=== PATIENT | female | born 1970 | race Two or more races ===

== ENCOUNTER 2023-05-14 07:32 | Emergency (ER) | payer OTHER ==
[~2023-05-14] VITALS: Ht 154.9 cm; Wt 71.7 kg
[~2023-05-14 07:32] MED LIST: ALLEGRA ALLERG180 MG; ELOCON45 G1 TP; MEDROLPACK PO; MEGA TAURINE1000 MG; PREVENT SOFTGEL1 CAP; SYNTHROID50 MCG; TRANXENE T-TA3.75 MG; ZYRTEC10 M3 PO
[2023-05-14] MEDS ORDERED: SYNTHROID112 MCG PO (07:40)
[2023-05-14] MEDS ORDERED: ZOLOFT50 MG PO (07:40)
[2023-05-14] MEDS ORDERED: 0.9 % SODIUM CHLORIDE 1,000 ML IV STA (08:33)
[2023-05-14] MEDS ORDERED: FAMOtidine 10 MG/ML (4ML VIAL) IV STA (08:34)
[2023-05-14] MEDS ORDERED: METOCLOPRAMIDE HCL 5 MG/ML VIAL IV STA (08:35)
[2023-05-14] MEDS ORDERED: ONDANSETRON HCL 2 MG/ML VIAL IV ONE (08:45)
[2023-05-14 08:59] LABS: HEMATOCRIT 37.8 % (36.0-45.00); HEMOGLOBIN 12.9 g/dL (12.0-15.00); MEAN CELL VOLUME 86.6 fL (80.00-100.00); MEAN CORPUSCULAR HEMOGLOBIN 29.7 pg (27.00-32.0); MEAN CORPUSCULAR HGB CONC 34.3 g/dl (32.0-36.0); PLATELET COUNT 339 K/uL (150-450); RED BLOOD COUNT 4.36 M/uL (4.00-6.00); RED CELL DISTRIBUTION WIDTH 13.1 % (11.5-14.5)
[2023-05-14 09:11] LABS: PH,URINE 5.5 (5.0-8.0); URINE APPEARANCE Cloudy; URINE BILIRRUBIN Negative (NEGATIVE); URINE BLOOD Small; URINE COLOR Yellow; URINE GLUCOSE Negative (NEGATIVE); URINE LEUKOCYTE Negative; URINE NITRATE Negative; URINE PROTEIN Trace (NEGATIVE); URINE UROBILINOGEN 0.2 E.U./dl
[2023-05-14 09:14] LABS: URINE BACTERIA 1301.5 uL (0.0-1933); URINE EPITHELIAL CELLS 41.5 uL (0.0-38.8); URINE WBC 6.8 uL (0.0-23.2)
[2023-05-14 09:28] LABS: ALBUMIN 3.9 gm/dL (3.4-5.0); ALKALINE PHOSPHATASE 100 U/L (50-136); ALT/SGPT 18 U/L (12-78); ANION GAP 7 (10.0-20.0); AST/SGOT 18 U/L (15-37); BILIRUBIN TOTAL 0.31 mg/dL (0.3-1.2); BILIRUBIN,CONJUGATED < 0.10 mg/dL (0.0-0.2); BILIRUBIN,UNCONJUGATED 0.21 mg/dL (0.0-0.6); BLOOD UREA NITROGEN 13 mg/dL (7-18); BUN CREA RATIO 18 (7.0-25.0); CALCIUM 9.5 mg/dL (8.5-10.1); CARBON DIOXIDE 28 mEq/L (21-32); CHLORIDE 107 mmol/L (98-107); CREATININE SERUM 0.71 mg/dL (0.55-1.02); GFR 85.78; GLUCOSE FASTING 93 mg/dL (65-100); OSMOLALITY SERUM 275 MOSM/KG (275-295); POTASSIUM 3.62 mEq/L (3.5-5.1); SODIUM 138 mmol/L (136-145); TOTAL PROTEIN 7.8 gm/dL (6.4-8.2)
== END 2023-05-14 13:32 | disposition home or self-care (01) ==
LOC: ER 07:33
PROVIDERS: General Practice
DX: K29.90 Gastroduodenitis, unspecified, without bleeding (principal); R10.13 Epigastric pain; Z88.6 Allergy status to analgesic agent; Z91.018 Allergy to other foods